=== PATIENT | female | born 1950 | race Caucasian/White ===

== ENCOUNTER 2018-03-10 09:16 | Inpatient (IN) | payer MEDICARE, BC ==
[2018-03-10] MEDS ORDERED: Morphine 4 MG/ML VIAL ONE (09:29)
[2018-03-10 09:47] LABS: #Lymphocytes 1.2 thou/uL (1.20-3.40); #Monocytes 0.3 thou/uL (0.11-0.59); #Neutrophils 5.4 thou/uL (1.40-6.50); %Basophils 0.5 % (0.0-1.0); %Eosinophils 0.5 % (0.0-10.0); %Lymphocytes 17.4 % (21.0-51.0); %Monocytes 4.9 % (0.0-10.0); %Neutrophils 76.6 % (42.0-75.0); Hemoglobin 12.9 g/dL (12.0-16.0); Mean Corpuscular HGB CONC 31.5 g/dL (32.0-36.0); Mean Corpuscular Hemoglobin 29.6 pg (27.0-31.0); Mean Corpuscular Volume 93.9 fL (78.0-98.0); Platelet Count 283 thou/uL (130-400); RBC Distribution Width 11.9 % (11.5-14.5); Red Blood Cell (RBC) Count 4.37 mill/uL (4.20-5.40); White Blood Cell (WBC) Count 7.1 thou/uL (4.8-10.8)
[2018-03-10 10:07] LABS: ALT (SGPT) 13 U/L (8-55); AST (SGOT) 16 U/L (5-34); Albumin 3.9 g/dL (3.4-4.8); Alkaline Phosphatase 64 U/L (40-150); Anion Gap 14 mmol/L (10-20); BUN (Urea Nitrogen) 13 mg/dL (9.8-20.1); Bilirubin, Total 0.7 mg/dL (0.2-1.2); Calc. Creatinine Clearance 0 mL/min (70-130); Calcium 8.3 mg/dL (7.8-10.44); Carbon Dioxide 21 mmol/L (23-31); Chloride 105 mmol/L (98-107); Estimated GFR-MDRD 67; Globulin 2.9 g/dL (2.4-3.5); Glucose 133 mg/dL (80-115); Potassium 3.8 mmol/L (3.5-5.1); Protein, Total 6.8 g/dL (6.0-8.3); Sodium 136 mmol/L (136-145)
--- NOTE | 2018-03-10 10:42 | CT ---
CONTRAST ENHANCED CT IMAGES OF THE ABDOMEN AND PELVIS: History: Abdominal pain after colonoscopy. FINDINGS: The lung bases are unremarkable. There is a massive amount of free intraperitoneal air seen. This is concerning for colonic perforatio n. The colon involving the ascending, transverse, and descending colon as well as the sigmoid colon appe ars to be thickened diffusely, concerning for colitis. The liver and spleen are unremarkable. A hiatal hernia is present. Adrenal glands are unremarkable. 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 Small bowel is not significantly distended. Uterine fibroid is present. IMPRESSION: 1. Massive intraperitoneal air. 2. Diffuse colonic thickening concerning for colitis. 3. Findings called to Dr. Escalona at 10:31 a.m. on 03-10-18. POS: GISELLA
[2018-03-10] MEDS ORDERED: Meropenem 2 GM, Admixture Fee 1 EACH in Sodium Chloride 0.9% 100 ML IVPB SCH (11:00)
--- NOTE | 2018-03-10 11:09 | HP ---
HISTORY OF PRESENT ILLNESS: Callie Grady is a 67-year-old female who lives in [facility] d her first colonoscopy with Dr. Perez this morning. She went through a bowel prep that was very good . The patient had a difficult colonoscopy. She had a history of Koroma's esophagus, underwent uppe r endoscopy that was normal. No biopsies were required. Colonoscopy was difficult in that her colon was tortuous requiring a smaller pediatric scope to complete the colonoscopy. Post-procedure the [facility] [place] had abdominal distention and tenderness and sent to the emergency room. CAT scan revealing pne umoperitoneum. The patient is having some pain, but it is not terrible. ALLERGIES: None. TOBACCO: None. ALCOHOL: Socially, wine. MEDICATIONS: Antihypertensives. PAST MEDICAL HISTORY: Hypertension. PAST SURGICAL HISTORY: Appendectomy, laparoscopic. REVIEW OF SYSTEMS: Ten point noncontributory. FAMILY HISTORY: Noncontributory. PHYSICAL EXAMINATION: VITAL SIGNS: Heart rate 80, 120/70, respiratory rate 18. GENERAL: Patient is in no distress. IV fluid liter bolus completed. LUNGS: Clear to auscultation. CARDIAC: Regular rate and rhythm without murmur or gallop. ABDOMEN: Soft, nondistended. Tenderness throughout with guarding. EXTREMITIES: Unremarkable. LABORATORY: White count 7, hemoglobin 12. Basic metabolic profile normal. Liver function tests nor mal. ASSESSMENT AND PLAN: Perforated viscus, suspect colon post-colonoscopy that was difficult. I have d iscussed with Dr. Perez. I have discussed with the patient and her . I have recommended a nabeel gnostic laparoscopy, possible laparotomy if indicated and closure, possible drainage of the perforati on, possible colon resection based on intraoperative findings. The risk and benefits of infection, b leeding, reoperation discussed, she consents.
[2018-03-10 11:58] LABS: Bilirubin Negative (Negative); Blood, Urine Negative (Negative); Clarity CLEAR (Clear); Glucose, Urine (Dipstick) Negative (Negative); Leukocyte Negative (Negative); Nitrite Negative (Negative); Protein, Urine (Dipstick) Negative (Neg-Trace); Specific Gravity, Urine 1.028 (1.002-1.036); Urobilinogen 0.2 mg/dL (0.2-1.0); pH, Urine 6.5 (5.0-9.0)
[2018-03-10] MEDS ORDERED: Ketorolac Tromethamine 30 MG/ML VIAL ONE (13:06)
[2018-03-10] MEDS ORDERED: Acetaminophen 1,000 MG in Premix Bag 1 BAG IVPB SCH (13:15)
[2018-03-10] MEDS ORDERED: Scopolamine 1.5 mg/72 hour Patch TOP SCH (13:15)
[2018-03-10] MEDS ORDERED: Fentanyl 250 MCG/5 ML VIAL ONE (14:04)
[2018-03-10] MEDS ORDERED: ISOVUE-370 76%-LOCM 1 ML ONE (14:05)
[2018-03-10] MEDS ORDERED: Bupivacaine/Epinephrine 0.25% 30 ML VIAL ONE (14:10)
[2018-03-10] MEDS ORDERED: Promethazine HCl 25 MG/ML VIAL IM PRN (14:53)
[2018-03-10] MEDS ORDERED: Promethazine HCl 25 MG/ML VIAL SLOW IVP PRN (14:53)
[2018-03-10] MEDS ORDERED: Meperidine HCl/PF 25 MG/ML VIAL SLOW IVP PRN (14:53)
[2018-03-10] MEDS ORDERED: Ondansetron HCl/PF 4 MG/2 ML Vial IVP PRN ×2 (14:53→15:18)
[2018-03-10] MEDS ORDERED: HYDROmorphone 2 MG/ML VIAL SLOW IVP PRN (14:53)
[2018-03-10] MEDS ORDERED: hydrALAZINE 20 MG/ML VIAL SLOW IVP PRN (15:14)
[2018-03-10] MEDS ORDERED: PHENYLEPHRINE-NS 100 MCG/ML 10 ML SYRINGE ONE (15:15)
[2018-03-10] MEDS ORDERED: Dexamethasone 20 MG/5 ML VIAL ONE (15:15)
[2018-03-10] MEDS ORDERED: ePHEDrine/0.9% NaCl/PF SYRINGE 50 mg/10 ml ONE (15:15)
[2018-03-10] MEDS ORDERED: Glycopyrrolate 0.2 MG/ML 5 ML SYRINGE ONE (15:15)
[2018-03-10] MEDS ORDERED: Ondansetron HCl/PF 4 MG/2 ML Vial ONE (15:15)
[2018-03-10] MEDS ORDERED: Lidocaine 1% PF 5 ML VIAL ONE (15:15)
[2018-03-10] MEDS ORDERED: PROPOFOL 200 MG/20 ML VIAL ONE (15:15)
[2018-03-10] MEDS ORDERED: Ondansetron ODT 4 MG TAB PO PRN (15:18)
[2018-03-10] MEDS ORDERED: Ondansetron ODT 8 MG TAB PO PRN (15:18)
[2018-03-10] MEDS ORDERED: Ondansetron ORAL SOLN. 4 MG/5 ML UDCUP PO PRN ×2 (15:18)
--- NOTE | 2018-03-10 16:47 | OP ---
DATE OF OPERATION: 03/10/2018 PREOPERATIVE DIAGNOSIS: Cecal perforation secondary iatrogenic colonoscopies. POSTOPERATIVE DIAGNOSIS: Cecal perforation secondary iatrogenic colonoscopies. PROCEDURE: Laparoscopic closure of cecal perforation, abdominal washout. SURGEON: Dr. Abdias Goodwin. ANESTHESIA: General. Local 0.25% Marcaine with epinephrine 30 mL. PROCEDURE IN DETAIL: The patient was taken to the operating room where under dorsal lithotomy positi on, abdomen was prepared with ChloraPrep. Buttocks, perineum, perianal area prepared with Betadine, draped in routine fashion. Local anesthetic infiltrated into the skin and subcutaneous tissue at eac h port site. Left lateral subcostal incision made. Pneumoperitoneum to 15 mmHg obtained with the Ve ress needle, replacing it with a 5 port and video laparoscope inserted. Left lower quadrant lateral incision made and 5 port placed. Left lateral mid abdominal incision made and a 12 port placed. The video laparoscope inserted and there was noted to be a cecal perforation, grasped with a grasper and closed with Endo blue load HILLARY stapler. Hemostasis gained with clips on this clip staple line. Abd ominal cavity irrigated and irrigant evacuated. Hemostasis noted. Irrigant and pneumoperitoneum karyn cuated. All instruments removed and all skin incisions approximated with interrupted subdermal 4-0 M onocryl and DermaGlue applied.
[2018-03-10] MEDS: Lactated Ringer's 1,000 ML IV SCH (18:47)
[2018-03-10] MEDS: Acetaminophen 1,000 MG in Premix Bag 1 BAG IVPB SCH (19:24)
[2018-03-10] MEDS: Ketorolac Tromethamine 30 MG/ML VIAL IVP SCH (19:24)
[2018-03-10] MEDS: Enoxaparin Sodium 40 MG/0.4 ML SYRINGE SC SCH (21:53)
[2018-03-10] MEDS: Meropenem 2 GM, Admixture Fee 1 EACH in Sodium Chloride 0.9% 100 ML IVPB SCH (21:53)
[2018-03-11] MEDS: Ketorolac Tromethamine 30 MG/ML VIAL IVP SCH ×4 (00:03→13:55)
[2018-03-11] MEDS: Acetaminophen 1,000 MG in Premix Bag 1 BAG IVPB SCH ×4 (00:34→14:01)
[2018-03-11] MEDS: Lactated Ringer's 1,000 ML IV SCH ×2 (00:34→17:57)
[2018-03-11] MEDS: Meropenem 2 GM, Admixture Fee 1 EACH in Sodium Chloride 0.9% 100 ML IVPB SCH ×3 (05:42→22:40)
[2018-03-11 06:07] LABS: #Lymphocytes 0.7 thou/uL (1.20-3.40); #Monocytes 0.4 thou/uL (0.11-0.59); #Neutrophils 10.5 thou/uL (1.40-6.50); %Basophils 0.1 % (0.0-1.0); %Eosinophils 0.4 % (0.0-10.0); %Lymphocytes 6.4 % (21.0-51.0); %Monocytes 3.5 % (0.0-10.0); %Neutrophils 89.7 % (42.0-75.0); Hemoglobin 11.9 g/dL (12.0-16.0); Mean Corpuscular Hemoglobin 30.1 pg (27.0-31.0); Mean Corpuscular Volume 94.1 fL (78.0-98.0); Mean Platelet Volume 7.8 fL (7.4-10.4); Platelet Count 227 thou/uL (130-400); Red Blood Cell (RBC) Count 3.96 mill/uL (4.20-5.40); White Blood Cell (WBC) Count 11.7 thou/uL (4.8-10.8)
[2018-03-11] MEDS ORDERED: Pantoprazole 40 MG VIAL IVP SCH (09:00)
[2018-03-11] MEDS ORDERED: Ketorolac Tromethamine 30 MG/ML VIAL IVP PRN (15:18)
[2018-03-11] MEDS ORDERED: traMADol HCl 50 MG TAB PO PRN ×2 (15:18)
[2018-03-11] MEDS ORDERED: Ibuprofen 600 MG TAB PO PRN (15:18)
[2018-03-11] MEDS ORDERED: Acetaminophen 500 MG TAB PO PRN (15:18)
--- NOTE | 2018-03-11 15:33 | EKG ---
Test Reason : PRE OP Blood Pressure : / mmHG Vent. Rate : 102 BPM Atrial Rate : 102 BPM P-R Int : 124 ms QRS Dur : 088 ms QT Int : 382 ms P-R-T Axes : 066 065 075 degrees QTc Int : 497 ms Sinus tachycardia Possible Left atrial enlargement Cannot rule out Anterior infarct , age undetermined Abnormal ECG Confirmed by SUHAS RICCI, DR. Avery ([id number]) on 03/11/2018 3:32:43 PM Referred By: DONN Confirmed By:DR. Bennie DAI MD
--- NOTE | 2018-03-11 17:45 | PRG ---
DATE OF SERVICE: 03/11/2018 SUBJECTIVE: Ms. Grady is doing well after laparoscopic closure of cecal perforation. OBJECTIVE: LUNGS: Clear to auscultation. CARDIAC: Regular rate and rhythm without murmur or gallop. ABDOMEN: Soft, nontender. Bowel sounds present. No flatus or stool. No nausea or vomiting. ASSESSMENT AND PLAN: The patient is doing well. We will plan to slowly advance her diet. Hopefully , she can be discharged home tomorrow.
[2018-03-11] MEDS: Enoxaparin Sodium 40 MG/0.4 ML SYRINGE SC SCH (20:09)
[2018-03-12] MEDS: Meropenem 2 GM, Admixture Fee 1 EACH in Sodium Chloride 0.9% 100 ML IVPB SCH (06:23)
[2018-03-12 08:34] VITALS: BP 125/76; TEMP 98.6
--- NOTE | 2018-03-12 10:17 | PRG ---
DATE OF SERVICE: 03/12/2018 SUBJECTIVE: Ms. Grday is doing well today. PHYSICAL EXAMINATION: VITAL SIGNS: Vital signs are stable, afebrile. She is tolerating a diet. She has passed flatus. LUNGS: Clear to auscultation. CARDIAC: Regular rate and rhythm without murmur or gallop. ABDOMEN: Soft, nontender, good bowel sounds. Laparoscopic wounds are well healed. EXTREMITIES: Unremarkable. LABORATORY DATA: None. ASSESSMENT AND PLAN: Doing well. Advance diet. Discharge home. She denies significant pain. She will take Tylenol and ibuprofen p.r.n. pain, Ultram not necessary. She was given Cipro and Flagyl fo r 5 days. Follow up in my office in 2-3 weeks.
--- NOTE | 2018-03-12 12:27 | DIS ---
DATE OF ADMISSION: 03/10/2018 DATE OF DISCHARGE: 03/12/2018 DISCHARGE DIAGNOSES: 1. Perforated cecum iatrogenic from colonoscopy [facility]. 2. Pneumoperitoneum, minimal contamination. HISTORY: A 67-year-old female undergoing screening colonoscopy. During the procedure noted to have a distended abdomen. She was sent to the hospital for increased pain and distended abdomen. CAT sca n revealing pneumoperitoneum, received intravenous fluids and antibiotics and going to the operating room for laparoscopic staple closure of cecal perforation. Postoperatively, she did well, kept on an tibiotics, meropenem until discharge home. Sent home with Levaquin and Flagyl for 5 days. Follow up in my office in 2-3 weeks. Diet and activity as tolerated. No lifting restrictions.
[2018-03-12] MEDS ORDERED: metroNIDAZOLE 500 MG TAB PO SCH (15:00)
[2018-03-12] MEDS ORDERED: Ciprofloxacin 500 MG TAB PO SCH (20:00)
[2018-03-16] MEDS ORDERED: Ibuprofen 600 MG TAB PO PRN (15:27)
== END 2018-03-12 10:45 | disposition home or self-care (01) | DRG 909 ==
LOC: ERS 09:16 → SDC 13:17 → SJJU 15:14
PROVIDERS: ADMIT Specialist; ATTEND Specialist
PROC: 0DQH4ZZ Repair Cecum, Percutaneous Endoscopic Approach (ICD-10-PCS; principal; 2018-03-10)
DX: K91.71 Accidental puncture and laceration of a digestive system organ or structure during a digestive system procedure (principal); I10 Essential (primary) hypertension; Y83.8 Other surgical procedures as the cause of abnormal reaction of the patient, or of later complication, without mention of misadventure at the time of the procedure; Y92.234 Operating room of hospital as the place of occurrence of the external cause
CPT/HCPCS: 36415; 74177; 80053; 81003; 83605; 85025; 93005; 93010; 96361; 96365; 96375; C9113; J0131; J1100; J1650; J1885; J2001; J2185; J2270; J2405; J2704; J3010; J7050

== ENCOUNTER 2020-10-02 07:18 | Inpatient (IN) | payer MEDICARE, BC ==
[2020-10-02] MEDS ORDERED: Morphine 4 MG/ML VIAL ONE (07:51)
[2020-10-02] MEDS ORDERED: Ondansetron PF 4 MG/2 ML Vial ONE ×2 (07:51→14:30)
[2020-10-02 08:00] LABS: Hemoglobin 13.4 g/dL (12.0-16.0); Mean Corpuscular HGB CONC 31.3 g/dL (32.0-36.0); Mean Corpuscular Hemoglobin 29.1 pg (27.0-31.0); Mean Platelet Volume 7.4 fL (7.4-10.4); Platelet Count 269 thou/uL (130-400); RBC Distribution Width 12.6 % (11.5-14.5); White Blood Cell (WBC) Count 9.5 thou/uL (4.8-10.8)
[2020-10-02 08:10] LABS: ALT (SGPT) 13 U/L (8-55); AST (SGOT) 16 U/L (5-34); Albumin 3.8 g/dL (3.4-4.8); Alkaline Phosphatase 78 U/L (40-110); Anion Gap 14 mmol/L (10-20); BUN (Urea Nitrogen) 21 mg/dL (9.8-20.1); Bilirubin, Total 0.9 mg/dL (0.2-1.2); Calc. Creatinine Clearance 0 mL/min (70-130); Calcium 9.2 mg/dL (7.8-10.44); Carbon Dioxide 24 mmol/L (23-31); Chloride 102 mmol/L (98-107); Globulin 3.3 g/dL (2.4-3.5); Glucose 115 mg/dL (80-115); Lipase 28 U/L (8-78); Potassium 3.9 mmol/L (3.5-5.1); Protein, Total 7.1 g/dL (5.8-8.1); Sodium 136 mmol/L (136-145)
[2020-10-02 08:19] LABS: Bacteria/HPF None Seen HPF (None Seen); Bilirubin Negative (Negative); Blood, Urine Negative (Negative); Clarity Clear (Clear); Glucose, Urine (Dipstick) Normal (Negative); Ketone, Urine Negative (Negative); Leukocyte 500 Leu/uL (Negative); Nitrite Negative (Negative); Protein, Urine (Dipstick) 10 mg/dL (Neg-Trace); RBC/HPF 0-3 HPF (0-3); Specific Gravity, Urine 1.025 (1.002-1.036); Squamous Epithelial 0-3 HPF (0-3); Urobilinogen Normal mg/dL (Less than 2); pH, Urine 6.5 (5.0-9.0)
[2020-10-02 08:28] LABS: Band 31 % (5-11); Lymphocytes 9 % (21-51); MDiff Complete? YES; Monocytes 9 % (0-10); Neutrophil 51 % (42-75); Platelet Morphology Comment Appears Adequate; RBC Morphology Normal
[2020-10-02] MEDS ORDERED: Iopamidol-370 76% 500 ML 1 ML ONE (09:08)
[2020-10-02] MEDS ORDERED: MEROPENEM 1 GM/50 ML 1 GM in Premix Bag 1 BAG IVPB SCH ×2 (09:30→11:00)
[2020-10-02] MEDS ORDERED: Cepastat Lozenges 1 LOZ PO PRN (10:21)
[2020-10-02] MEDS ORDERED: hydrALAZINE 20 MG/ML VIAL SLOW IVP PRN (10:21)
[2020-10-02] MEDS ORDERED: Ondansetron PF 4 MG/2 ML Vial IVP PRN ×2 (10:21→17:41)
[2020-10-02] MEDS ORDERED: Acetaminophen 325 MG TAB PO PRN (10:21)
[2020-10-02] MEDS ORDERED: Zolpidem Tartrate 5 MG TAB PO PRN ×2 (10:21→17:41)
[2020-10-02] MEDS ORDERED: Guaifenesin DM 100-10/5 ML UDCUP PO PRN (10:21)
[2020-10-02] MEDS ORDERED: Morphine 4 MG/ML VIAL SLOW IVP PRN (10:21)
[2020-10-02] MEDS ORDERED: Benzonatate 100 MG CAP PO PRN (10:21)
[2020-10-02] MEDS ORDERED: Labetalol HCl 100 MG/20 ML VIAL SLOW IVP PRN (10:21)
[2020-10-02] MEDS ORDERED: Acetaminophen 650 MG Suppository PR PRN ×2 (10:21)
[2020-10-02] MEDS ORDERED: Acetaminophen 500 MG TAB ONE (11:57)
[2020-10-02] MEDS ORDERED: Lactated Ringer's 1,000 ML IV SCH (12:30)
[2020-10-02] MEDS ORDERED: Sodium Chloride 0.9% 30 ML ONE (13:15)
[2020-10-02] MEDS ORDERED: Lidocaine 2% Jelly 5 ML TUBE ONE (13:19)
[2020-10-02 13:55] LABS: SARS-CoV-2 NAA Rapid Test Not Detected (NotDetected)
[2020-10-02] MEDS ORDERED: Fentanyl 100 MCG/2 ML VIAL ONE ×4 (14:06→16:19)
[2020-10-02] MEDS ORDERED: Midazolam HCl 2 mg/2 ml Vial ONE (14:15)
[2020-10-02] MEDS ORDERED: Dexamethasone 4 mg/ml Vial ONE (14:16)
[2020-10-02] MEDS ORDERED: Glycopyrrolate 0.2 MG/ML 5 ML SYRINGE ONE (14:30)
[2020-10-02] MEDS ORDERED: Lidocaine 1% PF 5 ML VIAL ONE (14:30)
[2020-10-02] MEDS ORDERED: Rocuronium Bromide 10 MG/ML (10ML VIAL) ONE (14:30)
[2020-10-02] MEDS ORDERED: Ketorolac Tromethamine 30 MG/ML VIAL ONE (14:30)
[2020-10-02] MEDS ORDERED: PHENYLEPHRINE-NS 100 MCG/ML 10 ML SYRINGE ONE (14:30)
[2020-10-02] MEDS ORDERED: Bupivacaine HCl 0.5%/Epinephrine 1:200,000/PF 30 ml Vial ONE (14:30)
[2020-10-02] MEDS ORDERED: Dexamethasone 20 MG/5 ML VIAL ONE ×2 (14:30)
[2020-10-02] MEDS ORDERED: PROPOFOL 200 MG/20 ML VIAL ONE (14:30)
[2020-10-02] MEDS ORDERED: Succinylcholine 200 MG/10 ml SYRINGE FS ONE (14:30)
[2020-10-02] MEDS ORDERED: diphenhydrAMINE 50 MG/ML VIAL ONE (14:30)
[2020-10-02] MEDS ORDERED: Promethazine HCl 25 MG/ML VIAL IM PRN ×2 (16:00→17:41)
[2020-10-02] MEDS ORDERED: Promethazine HCl 25 MG/ML VIAL SLOW IVP PRN (16:00)
[2020-10-02] MEDS ORDERED: Meperidine HCl/PF 25 MG/ML VIAL SLOW IVP PRN (16:00)
[2020-10-02] MEDS ORDERED: HYDROmorphone 2 MG/ML VIAL SLOW IVP PRN (16:00)
[2020-10-02] MEDS ORDERED: Albumin 5% 500 ML ONE (16:20)
[2020-10-02] MEDS ORDERED: diphenhydrAMINE 50 MG/ML VIAL IM PRN (17:41)
[2020-10-02] MEDS ORDERED: diphenhydrAMINE 50 MG/ML VIAL IVP PRN (17:41)
[2020-10-02] MEDS ORDERED: Naloxone HCl 0.4 mg/ml Vial IV PRN (17:41)
[2020-10-02] MEDS ORDERED: diphenhydrAMINE 25 MG CAP PO PRN (17:41)
[2020-10-02] MEDS ORDERED: Communication Order-Pharmacy FS SCH (17:45)
[2020-10-02] MEDS ORDERED: Acetaminophen 500 MG TAB PO PRN (17:59)
[2020-10-02] MEDS ORDERED: Piperacillin/Tazobactam 4.5 GM in Sodium Chloride 0.9% 100 ML IVPB SCH (18:00)
[2020-10-02] MEDS: Ketorolac Tromethamine 30 MG/ML VIAL IVP SCH ×2 (18:52→23:34)
[2020-10-02] MEDS: Lactated Ringer's 1,000 ML IV SCH ×2 (21:49→23:34)
[2020-10-02] MEDS: Scopolamine 1.5 mg/72 hour Patch TD SCH ×2 (21:49→23:34)
[2020-10-02 22:01] VITALS: BMI 20.1
[2020-10-03] MEDS: Piperacillin/Tazobactam 4.5 GM in Sodium Chloride 0.9% 100 ML IVPB SCH ×4 (03:37→19:36)
[2020-10-03] MEDS: Ketorolac Tromethamine 30 MG/ML VIAL IVP SCH ×4 (05:50→23:12)
[2020-10-03 05:52] LABS: #Basophils 0.1 thou/uL (0.0-0.2); RBC Distribution Width 12.7 % (11.5-14.5)
[2020-10-03 05:55] LABS: Anion Gap 12 mmol/L (10-20); BUN (Urea Nitrogen) 16 mg/dL (9.8-20.1); Calc. Creatinine Clearance 62 mL/min (70-130); Calcium 7.8 mg/dL (7.8-10.44); Carbon Dioxide 22 mmol/L (23-31); Chloride 109 mmol/L (98-107); Glucose 134 mg/dL (80-115); Potassium 3.8 mmol/L (3.5-5.1); Sodium 139 mmol/L (136-145)
[2020-10-03] MEDS: Lactated Ringer's 1,000 ML IV SCH ×4 (05:57→23:12)
[2020-10-03 06:25] LABS: #Lymphocytes 0.4 thou/uL (1.20-3.40); #Monocytes 0.2 thou/uL (0.11-0.59); #Neutrophils 8.1 thou/uL (1.40-6.50); %Basophils 0.6 % (0.0-1.0); %Lymphocytes 4.3 % (21.0-51.0); %Monocytes 2.7 % (0.0-10.0); %Neutrophils 92.4 % (42.0-75.0); Hemoglobin 9.8 g/dL (12.0-16.0); Mean Corpuscular HGB CONC 32.4 g/dL (32.0-36.0); Mean Corpuscular Hemoglobin 30.7 pg (27.0-31.0); Mean Corpuscular Volume 94.6 fL (78.0-98.0); Mean Platelet Volume 8.1 fL (7.4-10.4); Platelet Count 198 thou/uL (130-400); Red Blood Cell (RBC) Count 3.18 mill/uL (4.20-5.40); White Blood Cell (WBC) Count 8.8 thou/uL (4.8-10.8)
[2020-10-03] MEDS: Enoxaparin Sodium 40 MG/0.4 ML SYRINGE SC SCH (08:39)
[2020-10-03] MEDS: Pantoprazole 40 MG VIAL IVP SCH (08:39)
[2020-10-03] MEDS ORDERED: hydrALAZINE 20 MG/ML VIAL SLOW IVP PRN (14:27)
[2020-10-03] MEDS: HYDROmorphone 10 mg/100 ml CADD IVPB PRN (17:21)
[2020-10-03] MEDS ORDERED: CYCLOSPORINE 0.09% FS SCH (21:00)
[2020-10-04] MEDS: Piperacillin/Tazobactam 4.5 GM in Sodium Chloride 0.9% 100 ML IVPB SCH ×4 (03:22→20:21)
[2020-10-04] MEDS: Ketorolac Tromethamine 30 MG/ML VIAL IVP SCH ×3 (05:34→17:02)
[2020-10-04] MEDS: Lactated Ringer's 1,000 ML IV SCH ×3 (05:36→14:41)
[2020-10-04 06:01] LABS: #Lymphocytes 0.9 thou/uL (1.20-3.40); #Monocytes 0.3 thou/uL (0.11-0.59); #Neutrophils 6.3 thou/uL (1.40-6.50); %Basophils 0.1 % (0.0-1.0); %Eosinophils 0.2 % (0.0-10.0); %Lymphocytes 12.3 % (21.0-51.0); %Monocytes 4.4 % (0.0-10.0); Hemoglobin 9.5 g/dL (12.0-16.0); Mean Corpuscular HGB CONC 33.2 g/dL (32.0-36.0); Mean Corpuscular Volume 93.4 fL (78.0-98.0); Mean Platelet Volume 7.9 fL (7.4-10.4); Platelet Count 180 thou/uL (130-400); RBC Distribution Width 12.4 % (11.5-14.5); Red Blood Cell (RBC) Count 3.06 mill/uL (4.20-5.40); White Blood Cell (WBC) Count 7.6 thou/uL (4.8-10.8)
[2020-10-04 06:25] LABS: Anion Gap 11 mmol/L (10-20); BUN (Urea Nitrogen) 22 mg/dL (9.8-20.1); Calc. Creatinine Clearance 65 mL/min (70-130); Calcium 8.2 mg/dL (7.8-10.44); Carbon Dioxide 23 mmol/L (23-31); Chloride 109 mmol/L (98-107); Glucose 76 mg/dL (80-115); Potassium 3.5 mmol/L (3.5-5.1); Sodium 139 mmol/L (136-145)
[2020-10-04] MEDS: Enoxaparin Sodium 40 MG/0.4 ML SYRINGE SC SCH (07:51)
[2020-10-04] MEDS: Pantoprazole 40 MG VIAL IVP SCH (07:51)
[2020-10-05] MEDS: HYDROmorphone 10 mg/100 ml CADD IVPB PRN (00:30)
[2020-10-05] MEDS: Ketorolac Tromethamine 30 MG/ML VIAL IVP SCH ×3 (00:34→11:16)
[2020-10-05] MEDS: Lactated Ringer's 1,000 ML IV SCH (00:34)
[2020-10-05] MEDS: Piperacillin/Tazobactam 4.5 GM in Sodium Chloride 0.9% 100 ML IVPB SCH ×4 (02:36→20:09)
[2020-10-05 05:27] LABS: #Eosinphils 0.1 thou/uL (0.0-0.7); #Lymphocytes 1.1 thou/uL (1.20-3.40); #Monocytes 0.3 thou/uL (0.11-0.59); #Neutrophils 6.4 thou/uL (1.40-6.50); %Basophils 0.5 % (0.0-1.0); %Eosinophils 1.1 % (0.0-10.0); %Lymphocytes 13.4 % (21.0-51.0); %Monocytes 4.1 % (0.0-10.0); %Neutrophils 80.8 % (42.0-75.0); Hemoglobin 8.6 g/dL (12.0-16.0); Mean Corpuscular HGB CONC 32.1 g/dL (32.0-36.0); Mean Corpuscular Hemoglobin 30.1 pg (27.0-31.0); Mean Corpuscular Volume 93.8 fL (78.0-98.0); Mean Platelet Volume 7.6 fL (7.4-10.4); Platelet Count 236 thou/uL (130-400); RBC Distribution Width 12.4 % (11.5-14.5); Red Blood Cell (RBC) Count 2.87 mill/uL (4.20-5.40); White Blood Cell (WBC) Count 7.9 thou/uL (4.8-10.8)
[2020-10-05 05:48] LABS: Anion Gap 16 mmol/L (10-20); BUN (Urea Nitrogen) 24 mg/dL (9.8-20.1); Calc. Creatinine Clearance 64 mL/min (70-130); Calcium 8.5 mg/dL (7.8-10.44); Carbon Dioxide 19 mmol/L (23-31); Chloride 107 mmol/L (98-107); Potassium 3.2 mmol/L (3.5-5.1); Sodium 139 mmol/L (136-145)
[2020-10-05 06:08] LABS: Glucose 57 mg/dL (80-115)
[2020-10-05] MEDS ORDERED: Dextrose 50% Abboject 50 ML SYRINGE SLOW IVP PRN (06:20)
[2020-10-05] MEDS ORDERED: Dextrose 5% in Water 1,000 ML IV PRN (06:20)
[2020-10-05] MEDS ORDERED: Potassium Chloride 20 MEQ in Premix Bag 1 BAG IVPB SCH (06:45)
[2020-10-05] MEDS ORDERED: Potassium Chloride 40 MEQ in Dextrose 5%-Lactated Ringers 1,000 ML IV SCH (08:30)
[2020-10-05] MEDS: Enoxaparin Sodium 40 MG/0.4 ML SYRINGE SC SCH (09:12)
[2020-10-05] MEDS: Pantoprazole 40 MG VIAL IVP SCH (09:12)
[2020-10-05] MEDS ORDERED: HYDROcodone/Acetaminophen 5/325 mg Tablet PO PRN (11:26)
[2020-10-05] MEDS ORDERED: Ketorolac Tromethamine 30 MG/ML VIAL IVP PRN (11:27)
[2020-10-05] MEDS ORDERED: Potassium Chloride 20 MEQ TAB PO SCH (11:30)
[2020-10-05] MEDS ORDERED: Loratadine 10 MG TAB PO PRN (12:21)
[2020-10-05] MEDS: Scopolamine 1.5 mg/72 hour Patch TD SCH (13:34)
[2020-10-06] MEDS: Acetaminophen 500 MG TAB PO PRN ×2 (00:10→05:36)
[2020-10-06] MEDS: Piperacillin/Tazobactam 4.5 GM in Sodium Chloride 0.9% 100 ML IVPB SCH ×3 (03:04→15:36)
[2020-10-06 08:19] VITALS: TEMP 98.4
[2020-10-06] MEDS: Enoxaparin Sodium 40 MG/0.4 ML SYRINGE SC SCH (08:33)
[2020-10-06] MEDS ORDERED: Valsartan 80 MG TAB PO SCH (09:00)
[2020-10-06] MEDS ORDERED: Aspirin Chewable 81 MG TAB PO SCH (09:00)
[2020-10-06] MEDS ORDERED: Hydrochlorothiazide 25 MG TAB PO SCH (09:00)
[2020-10-06] MEDS ORDERED: Vit A,C & E/Lutein/Minerals Tablet PO SCH (09:00)
[2020-10-06] MEDS ORDERED: Ondansetron ODT 4 MG TAB PO PRN (13:48)
[2020-10-06 15:58] VITALS: BP 152/84
[2020-10-07] MEDS ORDERED: Amoxicillin/Potassium Clav 500 MG TAB PO SCH (21:00)
== END 2020-10-06 17:15 | disposition home or self-care (01) | DRG 853 ==
LOC: ERS 07:18 → SJJU 13:30 → SDC 13:36 → SJJU 20:12
PROVIDERS: ADMIT Specialist; ATTEND Internal Medicine
PROC: 0DBN0ZZ Excision of Sigmoid Colon, Open Approach (ICD-10-PCS; principal; 2020-10-02)
PROC: 0D1N0Z4 Bypass Sigmoid Colon to Cutaneous, Open Approach (ICD-10-PCS; 2020-10-02)
PROC: 3E0M05Z Introduction of Adhesion Barrier into Peritoneal Cavity, Open Approach (ICD-10-PCS; 2020-10-02)
PROC: 02HV33Z Insertion of Infusion Device into Superior Vena Cava, Percutaneous Approach (ICD-10-PCS; 2020-10-02)
DX: A41.9 Sepsis, unspecified organism (principal); K65.9 Peritonitis, unspecified; K57.20 Diverticulitis of large intestine with perforation and abscess without bleeding; Z20.822 Contact with and (suspected) exposure to COVID-19; I10 Essential (primary) hypertension; K21.9 Gastro-esophageal reflux disease without esophagitis; I34.1 Nonrheumatic mitral (valve) prolapse; K22.70 Barrett's esophagus without dysplasia; D64.9 Anemia, unspecified; E87.6 Hypokalemia; Z79.899 Other long term (current) drug therapy; Z79.82 Long term (current) use of aspirin; Z80.0 Family history of malignant neoplasm of digestive organs; Z90.49 Acquired absence of other specified parts of digestive tract; Z86.010 Personal history of colon polyps
CPT/HCPCS: 36415; 36416; 71045; 74177; 80048; 80053; 81003; 81015; 83605; 83690; 85025; 87040; 87086; 88307; 93005; 96365; 96375; C1751; C9113; J1100; J1200; J1650; J1885; J2185; J2250; J2270; J2405; J2543; J2704; J3010; J3480; J3490; P9045; Q0162; Q9967; U0002

== ENCOUNTER 2021-01-16 09:15 | Inpatient (IN) | payer MEDICARE ==
[2021-01-18 10:43] VITALS: BMI 19.7
[2021-01-21] MEDS ORDERED: Sodium Chloride 0.9% 100 ML ONE (06:25)
[2021-01-21] MEDS ORDERED: Scopolamine 1.5 mg/72 hour Patch ONE (06:25)
[2021-01-21] MEDS ORDERED: Gabapentin 300 MG CAP ONE (06:25)
[2021-01-21] MEDS ORDERED: Piperacillin/Tazobactam 3.375 GM VIAL ONE (06:25)
[2021-01-21] MEDS ORDERED: Famotidine/PF 20 mg/2ml Vial ONE (06:35)
[2021-01-21] MEDS ORDERED: Fentanyl 100 MCG/2 ML VIAL ONE ×5 (06:35→11:09)
[2021-01-21] MEDS ORDERED: Bupivacaine PF 0.5% 30 ML VIAL ONE (06:40)
[2021-01-21] MEDS ORDERED: Bupivacaine 0.25% HCL 30 ML VIAL ONE (06:51)
[2021-01-21] MEDS ORDERED: Lidocaine 1% w/Epinephrine 1:100K 20 ML VIAL ONE (06:51)
[2021-01-21] MEDS ORDERED: Midazolam HCl 2 mg/2 ml Vial ONE ×2 (07:03→07:04)
[2021-01-21] MEDS ORDERED: PHENYLEPHRINE-NS 100 MCG/ML 10 ML SYRINGE ONE (07:27)
[2021-01-21] MEDS ORDERED: Ondansetron PF 4 MG/2 ML Vial ONE (07:27)
[2021-01-21] MEDS ORDERED: Bupivacaine HCl 0.5%/Epinephrine 1:200,000/PF 30 ml Vial ONE (07:27)
[2021-01-21] MEDS ORDERED: PROPOFOL 200 MG/20 ML VIAL ONE (07:27)
[2021-01-21] MEDS ORDERED: Lidocaine 1% PF 5 ML VIAL ONE (07:27)
[2021-01-21] MEDS ORDERED: Glycopyrrolate 0.2 MG/ML 5 ML SYRINGE ONE (07:27)
[2021-01-21] MEDS ORDERED: Dexamethasone 20 MG/5 ML VIAL ONE (07:27)
[2021-01-21] MEDS ORDERED: Rocuronium Bromide 10 MG/ML (10ML VIAL) ONE (07:27)
[2021-01-21] MEDS ORDERED: Phenylephrine 10 MG/ML VIAL ONE (07:40)
[2021-01-21] MEDS ORDERED: PACU-Morphine 4MG/ML VIAL SLOW IVP PRN (10:21)
[2021-01-21] MEDS ORDERED: Promethazine HCl 25 MG/ML VIAL IVPB PRN (10:21)
[2021-01-21] MEDS ORDERED: Promethazine HCl 25 MG/ML VIAL IM PRN ×2 (10:21→11:03)
[2021-01-21] MEDS ORDERED: Morphine 2 MG/ML VIAL SLOW IVP PRN (10:36)
[2021-01-21] MEDS ORDERED: Morphine 10 MG/ML VIAL SLOW IVP PRN (10:36)
[2021-01-21] MEDS ORDERED: hydrALAZINE 20 MG/ML VIAL SLOW IVP PRN (10:36)
[2021-01-21] MEDS ORDERED: Ondansetron PF 4 MG/2 ML Vial IVP PRN ×2 (10:36→11:03)
[2021-01-21] MEDS ORDERED: Morphine 4 MG/ML VIAL SLOW IVP PRN (10:36)
[2021-01-21] MEDS ORDERED: Acetaminophen 500 MG TAB PO PRN (10:40)
[2021-01-21] MEDS ORDERED: diphenhydrAMINE 50 MG/ML VIAL IVP PRN (11:03)
[2021-01-21] MEDS ORDERED: Naloxone HCl 0.4 mg/ml Vial IV PRN (11:03)
[2021-01-21] MEDS ORDERED: fentaNYL Citrate/PF 2,000 MCG in Sodium Chloride 0.9% 60 ML IV PRN (11:03)
[2021-01-21] MEDS ORDERED: diphenhydrAMINE 50 MG/ML VIAL IM PRN (11:03)
[2021-01-21] MEDS ORDERED: diphenhydrAMINE 25 MG CAP PO PRN (11:03)
[2021-01-21] MEDS ORDERED: Zolpidem Tartrate 5 MG TAB PO PRN (11:03)
[2021-01-21] MEDS ORDERED: Communication Order-Pharmacy FS SCH (11:15)
[2021-01-21] MEDS ORDERED: D5 1/2 NS w/20 mEq KCL 1,000 ML ONE (11:32)
[2021-01-21] MEDS: D5 1/2 NS w/20 mEq KCL 1,000 ML IV SCH ×2 (12:04→20:09)
[2021-01-21] MEDS: Ketorolac Tromethamine 30 MG/ML VIAL IVP SCH ×2 (12:10→18:09)
[2021-01-21] MEDS: Famotidine/PF 20 mg/2ml Vial SLOW IVP SCH (20:09)
[2021-01-21] MEDS: Enoxaparin Sodium 40 MG/0.4 ML SYRINGE SC SCH (20:09)
[2021-01-21] MEDS: Famotidine 20 MG TAB PO SCH (20:18)
[2021-01-22] MEDS: Ketorolac Tromethamine 30 MG/ML VIAL IVP SCH ×5 (00:39→23:49)
[2021-01-22] MEDS: D5 1/2 NS w/20 mEq KCL 1,000 ML IV SCH (04:10)
[2021-01-22 05:50] LABS: #Lymphocytes 0.7 thou/uL (1.20-3.40); #Monocytes 0.8 thou/uL (0.11-0.59); #Neutrophils 9.2 thou/uL (1.40-6.50); %Basophils 0.2 % (0.0-1.0); %Eosinophils 0.2 % (0.0-10.0); %Lymphocytes 6.4 % (21.0-51.0); %Monocytes 7.5 % (0.0-10.0); %Neutrophils 85.7 % (42.0-75.0); Hemoglobin 11.9 g/dL (12.0-16.0); Mean Corpuscular HGB CONC 33.4 g/dL (32.0-36.0); Mean Corpuscular Hemoglobin 30.7 pg (27.0-31.0); Mean Corpuscular Volume 91.8 fL (78.0-98.0); Mean Platelet Volume 7.6 fL (7.4-10.4); Platelet Count 224 thou/uL (130-400); RBC Distribution Width 12.7 % (11.5-14.5); Red Blood Cell (RBC) Count 3.89 mill/uL (4.20-5.40); White Blood Cell (WBC) Count 10.8 thou/uL (4.8-10.8)
[2021-01-22 06:14] LABS: Anion Gap 9 mmol/L (10-20); BUN (Urea Nitrogen) 8 mg/dL (9.8-20.1); Calc. Creatinine Clearance 60 mL/min (70-130); Calcium 7.9 mg/dL (7.8-10.44); Carbon Dioxide 22 mmol/L (23-31); Chloride 101 mmol/L (98-107); Glucose 132 mg/dL (80-115); Potassium 4.4 mmol/L (3.5-5.1); Sodium 128 mmol/L (136-145)
[2021-01-22] MEDS: Famotidine/PF 20 mg/2ml Vial SLOW IVP SCH (08:07)
[2021-01-22] MEDS: Aspirin 81 mg Enteric Coated Tablet PO SCH (08:07)
[2021-01-22] MEDS: Famotidine 20 MG TAB PO SCH ×2 (08:17→20:29)
[2021-01-22] MEDS ORDERED: traMADol HCl 50 MG TAB PO PRN ×3 (10:18→11:01)
[2021-01-22] MEDS ORDERED: Acetaminophen 325 MG TAB PO PRN (10:37)
[2021-01-22] MEDS ORDERED: HYDROcodone/Acetaminophen 5/325 mg Tablet PO PRN ×2 (11:02)
[2021-01-22] MEDS: Sodium Chloride 0.9% 1,000 ML IV SCH (13:09)
[2021-01-22] MEDS: Acetaminophen 500 MG TAB PO PRN (13:20)
[2021-01-22] MEDS: Enoxaparin Sodium 40 MG/0.4 ML SYRINGE SC SCH (20:29)
[2021-01-23] MEDS: Ketorolac Tromethamine 30 MG/ML VIAL IVP SCH ×3 (05:36→17:50)
[2021-01-23] MEDS: Aspirin 81 mg Enteric Coated Tablet PO SCH (08:11)
[2021-01-23] MEDS: Famotidine 20 MG TAB PO SCH ×2 (08:11→19:57)
[2021-01-23] MEDS: Sodium Chloride 0.9% 1,000 ML IV SCH (10:21)
[2021-01-23] MEDS: Acetaminophen 500 MG TAB PO PRN (12:59)
[2021-01-23] MEDS: Enoxaparin Sodium 40 MG/0.4 ML SYRINGE SC SCH (19:57)
[2021-01-24] MEDS: Ketorolac Tromethamine 30 MG/ML VIAL IVP SCH ×2 (00:03→06:28)
[2021-01-24] MEDS: Acetaminophen 500 MG TAB PO PRN (02:01)
[2021-01-24 08:20] VITALS: BP 157/81; TEMP 98.4
[2021-01-24] MEDS: Aspirin 81 mg Enteric Coated Tablet PO SCH (09:08)
[2021-01-24] MEDS: Famotidine 20 MG TAB PO SCH (09:09)
== END 2021-01-24 12:00 | disposition home or self-care (01) | DRG 331 ==
LOC: SURG A 01-21 05:54
PROVIDERS: ADMIT Specialist; ATTEND Specialist
PROC: 0DQN4ZZ Repair Sigmoid Colon, Percutaneous Endoscopic Approach (ICD-10-PCS; principal; 2021-01-21)
DX: Z43.3 Encounter for attention to colostomy (principal); K66.0 Peritoneal adhesions (postprocedural) (postinfection); I10 Essential (primary) hypertension
CPT/HCPCS: 36415; 36416; 80048; 85025; J1100; J1650; J1885; J2250; J2370; J2405; J2543; J2704; J3010; J3480; J3490; S0020; S0028

== ENCOUNTER 2022-07-03 07:54 | Outpatient (CLI) | payer MEDICARE | END 2022-07-03 07:55 | disposition home or self-care (01) | LOC: TBSIIMAG 07:54 | PROVIDERS: ATTEND Neurological Surgery | DX: M51.16 Intervertebral disc disorders with radiculopathy, lumbar region (principal); M47.26 Other spondylosis with radiculopathy, lumbar region; M41.56 Other secondary scoliosis, lumbar region; Z98.890 Other specified postprocedural states | CPT/HCPCS: 72100 ==